=== PATIENT | male | born 1985 | race Caucasian/White ===

== ENCOUNTER 2024-08-04 10:21 | Emergency (ER) | payer MEDICAID, SELFPAY ==
[2024-08-04] VITALS (9 sets, daily range): BP systolic 106–136; BP diastolic 73–91; PULSE 70–95; RESP 18–22; TEMP 36.3–36.7; O2SAT 95–99; BMI 39.1
--- NOTE | 2024-08-04 10:41 | CT_ITS ---
FINAL REPORT TECHNIQUE: Oral and IV contrast enhanced exam This study was performed with techniques to keep radiation doses as low as reasonably achievable, (ALARA). Individualized dose reduction techniques using automated exposure control or adjustment of mA and/or kV according to the patient's size were employed. CLINICAL HISTORY: severe L sided flank pain and nausea, acute COMPARISON: None FINDINGS: Abdomen: No acute density is seen within the lung bases. The gallbladder is unremarkable. Solid abdominal organs are unremarkable. No bowel obstruction is present. There is no free air. No fluid collection is seen. There is a small nonobstructing left renal stone. There is no adenopathy. Pelvis: The appendix is normal. No bowel wall thickening is present. There is no free fluid. No pelvic mass is seen. There is a tiny left inguinal hernia containing fat. The bladder and prostate are normal in appearance. IMPRESSION: Small nonobstructing left renal stone without evidence of hydronephrosis or ureteral stone. Normal appendix. Reviewed, Interpreted and Dictated by Rita York MD Transcribed by Alie Grady Authenticated and [facility]
[2024-08-04 10:44] LABS: Microscopic, Urine URINE MICROSCOPIC (MICROSCOPIC)
[2024-08-04 10:47] LABS: Basophils # 0.1 K/mm3 (0-0.2); Basophils % 1.3 % (0.1-2.0); Eosinophils # 0.2 K/mm3 (0.0-0.4); Eosinophils % 2.1 % (0.1-12.0); Hematocrit 44.2 % (42.0-52.0); Hemoglobin 15.4 g/dL (14.1-18.0); Lymphocytes # 3.9 K/mm3 (0.7-4.5); Lymphocytes % 39.2 % (10-50); Mean Corpuscular HGB Conc 34.7 g/dL (31.8-35.4); Mean Corpuscular Hemoglobin 29.2 pg (27.0-31.2); Mean Corpuscular Volume 83.9 fl (80-94); Mean Platelet Volume 7.6 fl (7.4-10.4); Monocytes # 0.6 K/mm3 (0.1-1.0); Monocytes % 6.3 % (1.7-9.3); Neutrophils # 5.2 K/mm3 (1.8-7.8); Neutrophils % 51.1 % (37.0-80.0); Platelet Count 219 K/mm3 (142-424); Red Blood Count 5.27 M/mm3 (4.60-6.20); Red Cell Distribution Width 13.3 % (11.5-17.5); White Blood Count 10.1 K/mm3 (4.8-10.8)
[2024-08-04 11:00] LABS: Albumin Level 4.9 g/dl (3.5-5.0); Chloride 105 mmol/L (98-107)
[2024-08-04 11:01] LABS: Potassium 4.5 mmoL/L (3.5-5.1); Sodium 136 mmol/L (136-145)
[2024-08-04 11:03] LABS: Blood Urea Nitrogen 15 mg/dl (9-20); Creatinine Clearance Estimated 160 mL/min (50-200); Estimated Glomerular Filt Rate 93 ml/min (>60); GFR (African American) 113 ML/MIN (>60)
[2024-08-04 11:04] LABS: Alanine Aminotransferase 49 U/L (12-78); Albumin/Globulin Ratio 1.6 (1.1-1.8); Alkaline Phosphatase 59 U/L (38-126); Anion Gap 8.5 mEq/L (5-15); Aspartate Amino Transferase 41 U/L (17-59); Bilirubin,Total 0.4 mg/dl (0.2-1.3); Calcium 10.1 mg/dl (8.4-10.2); Carbon Dioxide 27 mmol/L (22.0-30.0); Globulin 3.1 g/dL (1.3-3.2); Glucose 106 mg/dl (74-100)
[2024-08-04] MEDS: KETOROLAC 30MG/ML VIAL 15 MG IV (11:05)
[2024-08-04] MEDS: ONDANSETRON 4MG/2ML VIAL 4 MG IV (11:05)
[2024-08-04] MEDS: MORPHINE 4MG/ML SYRINGE 4 MG IV ×2 (11:05→13:07)
[2024-08-04 11:11] LABS: Appearance,Urine CLEAR (Clear); Bilirubin,Urine Negative (Negative); Blood, Urine TRACE-I (Negative); Color,Urine YELLOW (Yellow); Glucose,Urine (UA) Negative (Negative); Ketones,Urine Negative (Negative); Leukocyte Esterase,Urine Negative (Negative); Nitrate,Urine Negative (Negative); Protein,Urine Negative (Negative); Urobilinogen,Urine 0.2 EU/dl (0.2)
--- NOTE | 2024-08-04 11:23 | ED_ITS ---
Discharge Plan Disposition Patient Disposition: Home, Self-Care Prescriptions Prescriptions: New methocarbamol 750 mg tablet 1,500 mg PO TID 5 Days Qty: 30 0RF Referrals Follow up/Referrals: Provider,Referral, MD [Primary Care Provider] - See instructions Activity Restrictions/Add. Instructions Additional Instructions/Restrictions: Call your family doctor to establish care for this visit to the emergency department and schedule follow-up within 48 hours to ensure improvement. If you have any worsening of your condition or any other concerning signs or symptoms, return to the emergency department or your primary care doctor for further evaluation. Clinical Impressions Clinical Impression: Renal colic, Muscle spasm Stand Alone Forms Stand Alone Forms: Work/School Release Print Language Print Language: Welsh Discharge ED Provider: Serg Morrow General Adult HPI General Chief complaint: PAIN Stated complaint: Pain Lower L side, nausea Time Seen by Provider: 08/04/24 10:22 Mode of Arrival: Family Vehicle Source of Information: Patient and Medical Record Limitations: No Limitations Description of Symptoms (Recalled from ER Triage Doc. by RN): Pt c/o L flank pain with nausea that began suddenly @ 0900. He reports he can not get comfortable and is pacing in the room. He has a hx of back pain from a injury at work and at this time a stone was seen in his left kidney on xray. History of Present Illness HPI narrative: Please note that above description of symptoms, in this electronic medical record under categorization of recalled from ER triage doctor by RN are reflective of an initial nursing assessment, however, is not reflective of my full history and physical exam that was personally taken and clarified. Consequentially, this preceding description of symptoms, which may include the patient's categorized chief complaint in the EMR, do not reflect my personal clinical impression, and the ultimate description of history of present illness and patient stated complaints should be deferred to this section of the note. Unless stated otherwise or congruent with this section of the note, additional signs, symptoms, or incongruence should be interpreted as inaccurate with my clinical impression. Related Data Previous Rx's ?Medication ?Instructions ?Recorded methocarbamol 750 mg tablet 1,500 mg (2 x 750 mg) PO TID 5 08/04/24 days #30 tabs Allergies Allergy/AdvReac Type Severity Reaction Status Date / Time Macrolide Antibiotics Allergy Verified 08/04/24 10:53 prednisone Allergy Verified 08/04/24 10:53 [facility] Disclaimer: The information contained in this section may have been updated after the patient was seen, as this information can be updated by other users. Social History Smoking Status: Current every day smoker alcohol intake: never current occupational status: employed Travel in the last 8 weeks: None ROS Obtained: Yes All systems reviewed & no additional complaints except as documented Physical Exam General General appearance: alert and in distress (mild d/t pain) Head Head exam: atraumatic and normocephalic Eye Eye exam: Present normal appearance, PERRL and EOMI Neck Neck exam: Present normal inspection, full ROM and trachea midline Respiratory Respiratory exam: Absent respiratory distress, wheezes, stridor, accessory muscle use or prolonged expiratory phase Cardiovascular Cardiovascular exam: Present other (Pulses equal symmetric in upper and lower extremities) Abdominal Exam Abdominal exam: Present soft; Absent distention, tenderness, guarding, rebound or pulsatile mass Extremities Exam Extremities exam: Absent edema Back Exam Back exam: Present CVA tenderness (L); Absent CVA tenderness (R) Neurological Exam Neurological exam: Present alert, oriented X3 and CN II-XII intact; Absent motor sensory deficit Skin Skin exam: Present warm and dry; Absent diaphoresis or erythema Medical Decision Making Medical Records Medical records reviewed: Yes I reviewed the patient's medical records. Screening: Per USPSTF and CDC recommendations, given the prevalence of disease in our region, it is our hospital?s policy to screen for HIV and viral Hepatitis for all patients aged 18 and over and those with ongoing risk factors. Kareem Inquiry Pt receiving controlled substance: No Kareem was queried for this patient: No Vital Signs: 08/04/24 10:23 08/04/24 11:10 08/04/24 11:30 Temperature 97.4 F L Temperature Source Oral Pulse Rate 79 79 Pulse Rate [Right] 95 H Respiratory Rate 22 Blood Pressure 114/73 133/91 H Blood Pressure [Right Arm] 136/86 Blood Pressure Mean Blood Pressure Mean [Right Arm] 102 Blood Pressure Source [Right Arm] Automatic Cuff 02 Sat by Pulse Oximetry 99 95 95 Oxygen Delivery Method Room Air Room Air 08/04/24 12:03 08/04/24 12:30 08/04/24 12:45 Temperature Temperature Source Pulse Rate 78 74 82 Pulse Rate [Right] Respiratory Rate Blood Pressure 122/84 120/84 124/83 Blood Pressure [Right Arm] Blood Pressure Mean Blood Pressure Mean [Right Arm] Blood Pressure Source [Right Arm] 02 Sat by Pulse Oximetry 97 96 97 Oxygen Delivery Method 08/04/24 13:30 08/04/24 14:00 08/04/24 14:32 Temperature 98.0 F Temperature Source Oral Pulse Rate 70 74 74 Pulse Rate [Right] Respiratory Rate 18 Blood Pressure 122/76 106/74 L 124/78 Blood Pressure [Right Arm] Blood Pressure Mean 86 Blood Pressure Mean [Right Arm] Blood Pressure Source [Right Arm] 02 Sat by Pulse Oximetry 95 95 Oxygen Delivery Method Room Air Lab Data Lab Results 08/04/24 10:35: WBC 10.1, RBC 5.27, Hgb 15.4, Hct 44.2, MCV 83.9, MCH 29.2, MCHC 34.7, RDW 13.3, Plt Count 219, MPV 7.6, Neut % (Auto) 51.1, Lymph % (Auto) 39.2, [place] % (Auto) 6.3, Eos % (Auto) 2.1, Baso % (Auto) 1.3, Neut # (Auto) 5.2, Lymph # (Auto) 3.9, [place] # (Auto) 0.6, Eos # (Auto) 0.2, Baso # (Auto) 0.1, Sodium 136, Potassium 4.5, Chloride 105, Carbon Dioxide 27, Anion Gap 8.5, BUN 15, Creatinine 0.90, Estimated Creat Clear 160, Estimated GFR 93, Est GFR ( Amer) 113, Glucose 106 H, Calcium 10.1, Total Bilirubin 0.4, AST 41, ALT 49, Alkaline Phosphatase 59, Total Protein 8.0, Albumin 4.9, Globulin 3.1, Albumin/Globulin Ratio 1.6, Lipase 69, Urine Color Yellow, Urine Appearance Clear, Urine pH 7.0, Ur Specific [place] 1.020, Urine Protein Negative, Urine Glucose (UA) Negative, Urine Ketones Negative, Urine Blood Trace-i, Urine Nitrate Negative, Urine Bilirubin Negative, Urine Urobilinogen 0.2, Ur Leukocyte Esterase Negative, Urine RBC None, Urine WBC Occasional, Ur Squamous Epith Cells Occasional, Urine Bacteria Trace 08/04/24 10:35 08/04/24 10:35 Orders (Tests/Meds): ED MEDICATIONS Discontinued Medications Generic Name Dose Route Start Last Admin Trade Name Freq PRN Reason Stop Dose Admin Iopamidol 75 ml 08/04/24 11:42 08/04/24 11:48 Iopamidol-370 (76%);100ml Bottle IV 08/04/24 11:43 75 ml ONCE ONE Administration Ketorolac Tromethamine 15 mg 08/04/24 10:41 08/04/24 11:05 Ketorolac 30mg/Ml Vial IV 08/04/24 10:42 15 mg ONCE ONE Administration Morphine Sulfate 4 mg 08/04/24 10:41 08/04/24 11:05 Morphine 4mg/Ml Syringe IV 08/04/24 10:42 4 mg ONCE ONE Administration Morphine Sulfate 4 mg 08/04/24 12:46 08/04/24 13:07 Morphine 4mg/Ml Syringe IV 08/04/24 12:47 4 mg ONCE ONE Administration Ondansetron HCl 4 mg 08/04/24 10:41 08/04/24 11:05 Ondansetron 4mg/2ml Vial IV 08/04/24 10:42 4 mg ONCE ONE Administration Sodium Chloride 10 ml 08/04/24 11:42 08/04/24 11:48 Sodium Chloride 0.9% 10ml Syr (Rad Only) IV 08/04/24 11:43 10 ml ONCE ONE Administration ORDERS Category Date Time Status CT abdomen pelvis w con Stat Cat Scan 08/04/24 10:41 Completed Complete Blood Count Auto Diff Stat Lab 08/04/24 10:35 Completed Comprehensive Metabolic Panel Stat Lab 08/04/24 10:35 Completed HIV (1&2) Antibody Rapid Stat Lab 08/04/24 10:35 Received Hep C Ab with Reflex to RNA Stat Lab 08/04/24 10:35 Received Lipase Stat Lab 08/04/24 10:35 Completed Urinalysis and Microscopic Stat Lab 08/04/24 10:35 Completed Medical Decision Narrative: 38-year-old male presenting with left-sided flank pain. Patient states that he was walking to work earlier today, had an acute onset left-sided flank pain. States that he had back pain a few months ago, was seen and received x-ray at that time. States that on the abdominal/lumbar spine x-ray they saw a kidney stone. Has never had stone pain in the past. Still urinating, no blood in his stool or urine, no fevers or chills, nausea or vomiting, or any other concerns. Has not taken anything for the pain. Does not radiate. History obtained with patient. On arrival, he appears to be in mild distress secondary to pain. Walking around the room, holding his left side. No outward signs of abnormality. Abdomen is soft, nontender, nondistended. Differential includes pyelonephritis, nephrolithiasis, diverticulitis, among others. Labs sent, imaging ordered. Patient was given Toradol, Zofran, morphine. Independent interpretation of workup demonstrates nonactionable hematologic labs. Urinalysis with trace blood. CT abdomen and pelvis was independently interpreted and periureteral fat stranding, but no obvious stone.. No evidence of peripancreatic fat stranding, perinephric fat stranding, bilateral maladies, etc. on reevaluation, patient feeling much better, states that the pain intermittently comes and goes. Given negative workup, I feel is most likely direct marketing representative of muscle spasm given recent back injury. Patient voiced his understanding and agreed. Could also be recently passed urinary stone, given no stone on CT, but periureteral inflammation and trace hematuria. Because patient at baseline without signs or symptoms of clinical decompensation, deemed appropriate for discharge. Results were relayed to patient who voiced understanding and were agreeable to outpatient management and follow up. I discussed my clinical impression with patient and answered all questions. At this time, the evidence for any other entities in the differential is insufficient to warrant any further testing or ED observation. This was explained as well. Advisory was given that persistent or worsening symptoms require further evaluation. I confirmed the understanding of this discussion. Private Branch Exchange Service Advisor disclaimer Much of this encounter note is an electronic turntable worker spoken language to printed text. Electronic turntable worker of the spoken language may permit errors. Although I have reviewed the note, some errors may still exist. Critical Care Critical Care Time Critical Care Time: No
[2024-08-04 11:48] LABS: Bacteria,Urine Trace /lpf; Squamous Epithelial Cell,Urine Occasional #/hpf (0-5); WBC,Urine Occasional #/hpf (0-3)
[2024-08-04] MEDS: IOPAMIDOL-370 (76%);100ML BOTTLE 75 ML IV (11:48)
[2024-08-04] MEDS: SODIUM CHLORIDE 0.9% 10ML SYR (RAD ONLY) 10 ML IV (11:48)
[2024-08-04 12:21] LABS: Lipase 69 U/L (23-300)
[2024-08-05 06:10] LABS: HCV Ab Non Reactive (Non Reactive)
[2024-08-05 11:33] LABS: HIV Combo NEGATIVE (Negative)
== END 2024-08-04 14:44 | disposition home or self-care (01) ==
PROVIDERS: Emergency Provider Emergency Medicine
DX: N23 Unspecified renal colic (principal); M62.838 Other muscle spasm; R11.0 Nausea
CPT/HCPCS: 74177; 80053; 81001; 83690; 85025; 86803; 87389; 96374; 96375; 99285; J1885; J2270; J2405; Q9967

== ENCOUNTER 2024-10-01 18:33 | Emergency (ER) | payer MEDICAID, SELFPAY ==
[2024-10-01 18:38] VITALS: BP 122/88; PULSE 77; RESP 18; TEMP 36.8; O2SAT 98
--- NOTE | 2024-10-01 18:49 | HMH.EDGENADL ---
Discharge Plan Disposition Patient Disposition: Home, Self-Care Condition: Good Prescriptions Prescriptions: New tamsulosin 0.4 mg capsule 0.4 mg PO HS Qty: 30 0RF Referrals Follow up/Referrals: Provider,Referral, MD [Primary Care Provider] - See instructions Activity Restrictions/Add. Instructions Additional Instructions/Restrictions: Please follow-up with urology for your hematuria. I have started on tamsulosin to help with ureteral spasm. Follow-up with your PCP within 48 hours for recheck sooner if you have any ongoing new or worsening signs or symptoms. Clinical Impressions Clinical Impression: Acute right flank pain Hematuria Qualifiers: Hematuria type: unspecified type Qualified Code(s): R31.9 - Hematuria, unspecified Print Language Print Language: Frisian Discharge ED Provider: Serg Morrow General Adult HPI <AMAYA Payne - Last Filed: 10/01/24 20:54> General Chief complaint: PAIN Stated complaint: Poss kidney stone,lower back pain Time Seen by Provider: 10/01/24 18:49 Mode of Arrival: Ambulatory Source of Information: Patient Limitations: No Limitations Description of Symptoms (Recalled from ER Triage Doc. by RN): Pt presents with c/o right sided flank pain x 1.5 hours prior to arrival. Pt states the pain comes and goes, and is sharp in nature. Pt has nausea, and urine appears darker. Pt rates pain as a 8/10 pain, pt states he has a history 2 other kidney stones. History of Present Illness HPI narrative: Patient presents for evaluation of right flank pain. Patient states it he began having right flank pain approximately 2 hours ago. He denies any trauma. He said it came on suddenly while working and has been progressive and constant since. He denies any numbness tingling loss of motor or sensory in his right lower extremity. It radiates down around to his right groin but denies dysuria hematuria chest pain shortness of breath fever chills hemoptysis hematochezia melena but does endorse nausea but no vomiting or diarrhea. Related Data Previous Rx's ?Medication ?Instructions ?Recorded tamsulosin 0.4 mg capsule 0.4 mg PO HS #30 caps 10/01/24 Allergies Allergy/AdvReac Type Severity Reaction Status Date / Time Macrolide Antibiotics Allergy Rash Verified 10/01/24 18:53 prednisone Allergy Shakiness Verified 10/01/24 18:53 PFSH <AMAYA Payne - Last Filed: 10/01/24 20:54> [facility] Disclaimer: The information contained in this section may have been updated after the patient was seen, as this information can be updated by other users. Social History Smoking Status: Current every day smoker alcohol intake: never current occupational status: employed Travel in the last 8 weeks: None Have you lived/traveled outside [place] in past 30 days?: No Contact w/someone who lives/traveled outside US past 30 days?: No Exposure to someone with infectious disease in past 14 days?: No Do you have a fever (greater than 100.4 F or 38 C)?: No Have you tested positive for COVID-19: No Exposed to someone with COVID-19 in past 14 days?: No Do you have a sore throat?: No Do you have a cough?: No Do you have any weakness?: No Do you have any diarrhea?: No Are you experiencing any unusual bleeding?: No Do you have any muscle aches/pain?: No Do you have any abdominal pain?: No Are you experiencing loss of taste or smell?: No <AMAYA Payne - Last Filed: 10/01/24 20:54> ROS Obtained: Yes Systems reviewed as appropriate & no additional complaints except as documented Physical Exam <AMAYA Payne - Last Filed: 10/01/24 20:54> General General appearance: alert and in no apparent distress Respiratory Respiratory exam: Present normal lung sounds bilaterally Cardiovascular Cardiovascular exam: Present regular rate Neurological Exam Neurological exam: Present alert and oriented X3 Medical Decision Making <AMAYA Payne - Last Filed: 10/01/24 20:54> Medical Records Medical records reviewed: Yes I reviewed the patient's medical records. Screening: Per USPSTF and CDC recommendations, given the prevalence of disease in our region, it is our hospital?s policy to screen for HIV and viral Hepatitis for all patients aged 18 and over and those with ongoing risk factors. Kareem Inquiry Pt receiving controlled substance: No Vital Signs: 10/01/24 18:38 10/01/24 18:51 10/01/24 19:02 Temperature 98.2 F Temperature Source Oral Pulse Rate 94 H 70 Pulse Rate [Right] 77 Respiratory Rate 18 Blood Pressure 140/90 169/111 H Blood Pressure [Right Arm] 122/88 Blood Pressure Mean Blood Pressure Mean [Right Arm] 99 Blood Pressure Source [Right Arm] Automatic Cuff Blood Pressure Position [Right Arm] Sitting 02 Sat by Pulse Oximetry 98 96 98 Oxygen Delivery Method Room Air Room Air 10/01/24 20:00 10/01/24 20:30 10/01/24 20:53 Temperature 98.4 F Temperature Source Oral Pulse Rate 74 70 91 H Pulse Rate [Right] Respiratory Rate 20 Blood Pressure 166/89 H 158/94 H 158/94 H Blood Pressure [Right Arm] Blood Pressure Mean 114 108 Blood Pressure Mean [Right Arm] Blood Pressure Source [Right Arm] Blood Pressure Position [Right Arm] 02 Sat by Pulse Oximetry 95 98 Oxygen Delivery Method Room Air Lab Data Lab results reviewed: Yes I reviewed the patient's lab results. Lab Results 10/01/24 18:46: Urine Color Yellow, Urine Appearance Clear, Urine pH 6.5, Ur Specific [place] 1.025, Urine Protein Negative, Urine Glucose (UA) Negative, Urine Ketones Negative, Urine Blood 2+ A, Urine Nitrate Negative, Urine Bilirubin Negative, Urine Urobilinogen 0.2, Ur Leukocyte Esterase Negative, Urine RBC 20-50, Urine WBC 3-5, Ur Squamous Epith Cells 3-5, Urine Bacteria 1+, Urine Mucus 1+, Urine Yeast Occasional 10/01/24 19:01: WBC 10.4, RBC 5.61, Hgb 15.4, Hct 46.8, MCV 83.4, MCH 27.5, MCHC 32.9, RDW 12.0, Plt Count 284, MPV 10.3, Neut % (Auto) 40.8, Lymph % (Auto) 48.6, [place] % (Auto) 7.8, Eos % (Auto) 1.8, Baso % (Auto) 0.7, Neut # (Auto) 4.3, Lymph # (Auto) 5.1 H, [place] # (Auto) 0.8, Eos # (Auto) 0.2, Baso # (Auto) 0.1, PT 9.9 L, INR 0.87 L, Sodium 140, Potassium 4.9, Chloride 102, Carbon Dioxide 27, Anion Gap 15.9 H, BUN 19, Creatinine 0.90, Estimated Creat Clear 15, Estimated GFR 93, Est GFR ( Amer) 113, Glucose 95, Calcium 10.4 H, Total Bilirubin 0.6, AST 79 H, ALT 140 H, Alkaline Phosphatase 51, Total Protein 8.6 H, Albumin 5.1 H, Globulin 3.5 H, Albumin/Globulin Ratio 1.5, Lipase 91, Procalcitonin 0.068 10/01/24 19:01 10/01/24 19:01 Orders (Tests/Meds): ED MEDICATIONS Discontinued Medications Generic Name Dose Route Start Last Admin Trade Name Freq PRN Reason Stop Dose Admin Acetaminophen 1,000 mg 10/01/24 19:02 10/01/24 19:14 Acetaminophen 1,000mg/100ml Vial IV 10/01/24 19:03 1,000 mg ONCE ONE Administration Iopamidol 75 ml 10/01/24 19:29 10/01/24 19:33 Iopamidol-370 (76%);100ml Bottle IV 10/01/24 19:30 75 ml ONCE ONE Administration Ketorolac Tromethamine 15 mg 10/01/24 19:02 10/01/24 19:14 Ketorolac 30mg/Ml Vial IV 10/01/24 19:03 15 mg ONCE ONE Administration Oxycodone HCl 5 mg 10/01/24 19:02 10/01/24 19:14 Oxycodone 5mg Immediate Release Tablet PO 10/01/24 19:03 5 mg ONCE ONE Administration Sodium Chloride 10 ml 10/01/24 19:29 10/01/24 19:33 Sodium Chloride 0.9% 10ml Syr (Rad Only) IV 10/01/24 19:30 10 ml ONCE ONE Administration ORDERS Category Date Time Status CT abdomen pelvis w con Stat Cat Scan 10/01/24 19:02 Completed POCUS Point of Care (ER Only) Stat Exams 10/01/24 19:46 Completed CBC w/Auto Diff [Complete Blood Count Auto Diff] Stat Lab 10/01/24 19:01 Completed CMP [Comprehensive Metabolic Panel] Stat Lab 10/01/24 19:01 Completed INR [Prothrombin Time INR] Stat Lab 10/01/24 19:01 Completed Lipase Stat Lab 10/01/24 19:01 Completed Procalcitonin Stat Lab 10/01/24 19:01 Completed Urinalysis and Microscopic Stat Lab 10/01/24 18:46 Completed Medical Decision Narrative: In summary patient is a 38-year-old male who presents to the emergency department for evaluation of right flank and abdominal pain. Patient is hemodynamically stable upon arrival, afebrile. Physical exam is remarkable for nonreproducible right flank pain that radiates around to the right abdomen with no midline spine tenderness no perimuscular tenderness full range of motion of his lower extremity no neurovascular abnormalities no focal neurologic deficits abdomen is soft nontender no rebound or guarding or rigidity. Bowel sounds normal active. He does have CVA tenderness to percussion on the right negative on the left. Differential diagnosis includes kidney stone versus urinary tract infection versus cholecystitis versus gastritis versus constipation etc. Initial workup will be conducted with hematologic labs CT scan abdomen pelvis urinalysis. Initial interventions include crystalloid bolus Toradol Tylenol and oxycodone. Initial workup reviewed by me shows that his hematologic labs are significant for elevated AST and ALT but negative alk phos and normal bilirubin with the remainder being nonactionable and urinalysis positive for 2+ blood negative nitrate negative and leukocyte Estrace negative microscopic exam shows 20-50 red cells 3-5 whites 1+ bacteria, my informal interpretation of his CT scan abdomen pelvis shows no evidence of hydronephrosis or stone and no other acute intra-abdominal pathology prior to radiology read. With a question this might be biliary in nature I ordered a POCUS and there was no evidence of stone or biliary ductal dilatation noted upon repeat evaluation patient had complete resolution of his symptoms. Given this mother remains diagnostic uncertainty as to the cause of his flank pain the possibility exists that he had already had a kidney stone and passed it was experiencing renal colic but I can find no radiographic evidence of stone currently. Patient advised to follow-up with his urologist if he has recurrence and to follow-up with his PCP for his hematuria if this is not stone related. I will start the patient on tamsulosin as he does have evidence of nonobstructing renal stones. <Serg Morrow MD - Last Filed: 10/01/24 22:11> Vital Signs: 10/01/24 18:38 10/01/24 18:51 10/01/24 19:02 Temperature 98.2 F Temperature Source Oral Pulse Rate 94 H 70 Pulse Rate [Right] 77 Respiratory Rate 18 Blood Pressure 140/90 169/111 H Blood Pressure [Right Arm] 122/88 Blood Pressure Mean Blood Pressure Mean [Right Arm] 99 Blood Pressure Source [Right Arm] Automatic Cuff Blood Pressure Position [Right Arm] Sitting 02 Sat by Pulse Oximetry 98 96 98 Oxygen Delivery Method Room Air Room Air 10/01/24 20:00 10/01/24 20:30 10/01/24 20:53 Temperature 98.4 F Temperature Source Oral Pulse Rate 74 70 91 H Pulse Rate [Right] Respiratory Rate 20 Blood Pressure 166/89 H 158/94 H 158/94 H Blood Pressure [Right Arm] Blood Pressure Mean 114 108 Blood Pressure Mean [Right Arm] Blood Pressure Source [Right Arm] Blood Pressure Position [Right Arm] 02 Sat by Pulse Oximetry 95 98 Oxygen Delivery Method Room Air Lab Data Lab Results 10/01/24 18:46: Urine Color Yellow, Urine Appearance Clear, Urine pH 6.5, Ur Specific [place] 1.025, Urine Protein Negative, Urine Glucose (UA) Negative, Urine Ketones Negative, Urine Blood 2+ A, Urine Nitrate Negative, Urine Bilirubin Negative, Urine Urobilinogen 0.2, Ur Leukocyte Esterase Negative, Urine RBC 20-50, Urine WBC 3-5, Ur Squamous Epith Cells 3-5, Urine Bacteria 1+, Urine Mucus 1+, Urine Yeast Occasional 10/01/24 19:01: WBC 10.4, RBC 5.61, Hgb 15.4, Hct 46.8, MCV 83.4, MCH 27.5, MCHC 32.9, RDW 12.0, Plt Count 284, MPV 10.3, Neut % (Auto) 40.8, Lymph % (Auto) 48.6, [place] % (Auto) 7.8, Eos % (Auto) 1.8, Baso % (Auto) 0.7, Neut # (Auto) 4.3, Lymph # (Auto) 5.1 H, [place] # (Auto) 0.8, Eos # (Auto) 0.2, Baso # (Auto) 0.1, PT 9.9 L, INR 0.87 L, Sodium 140, Potassium 4.9, Chloride 102, Carbon Dioxide 27, Anion Gap 15.9 H, BUN 19, Creatinine 0.90, Estimated Creat Clear 15, Estimated GFR 93, Est GFR ( Amer) 113, Glucose 95, Calcium 10.4 H, Total Bilirubin 0.6, AST 79 H, ALT 140 H, Alkaline Phosphatase 51, Total Protein 8.6 H, Albumin 5.1 H, Globulin 3.5 H, Albumin/Globulin Ratio 1.5, Lipase 91, Procalcitonin 0.068 Orders (Tests/Meds): ED MEDICATIONS Discontinued Medications Generic Name Dose Route Start Last Admin Trade Name Freq PRN Reason Stop Dose Admin Acetaminophen 1,000 mg 10/01/24 19:02 10/01/24 19:14 Acetaminophen 1,000mg/100ml Vial IV 10/01/24 19:03 1,000 mg ONCE ONE Administration Iopamidol 75 ml 10/01/24 19:29 10/01/24 19:33 Iopamidol-370 (76%);100ml Bottle IV 10/01/24 19:30 75 ml ONCE ONE Administration Ketorolac Tromethamine 15 mg 10/01/24 19:02 10/01/24 19:14 Ketorolac 30mg/Ml Vial IV 10/01/24 19:03 15 mg ONCE ONE Administration Oxycodone HCl 5 mg 10/01/24 19:02 10/01/24 19:14 Oxycodone 5mg Immediate Release Tablet PO 10/01/24 19:03 5 mg ONCE ONE Administration Sodium Chloride 10 ml 10/01/24 19:29 10/01/24 19:33 Sodium Chloride 0.9% 10ml Syr (Rad Only) IV 10/01/24 19:30 10 ml ONCE ONE Administration ORDERS Category Date Time Status CT abdomen pelvis w con Stat Cat Scan 10/01/24 19:02 Completed POCUS Point of Care (ER Only) Stat Exams 10/01/24 19:46 Completed CBC w/Auto Diff [Complete Blood Count Auto Diff] Stat Lab 10/01/24 19:01 Completed CMP [Comprehensive Metabolic Panel] Stat Lab 10/01/24 19:01 Completed INR [Prothrombin Time INR] Stat Lab 10/01/24 19:01 Completed Lipase Stat Lab 10/01/24 19:01 Completed Procalcitonin Stat Lab 10/01/24 19:01 Completed Urinalysis and Microscopic Stat Lab 10/01/24 18:46 Completed Medical Decision Narrative: In summary patient is a 38-year-old male who presents to the emergency department for evaluation of right flank and abdominal pain. Patient is hemodynamically stable upon arrival, afebrile. Physical exam is remarkable for nonreproducible right flank pain that radiates around to the right abdomen with no midline spine tenderness no perimuscular tenderness full range of motion of his lower extremity no neurovascular abnormalities no focal neurologic deficits abdomen is soft nontender no rebound or guarding or rigidity. Bowel sounds normal active. He does have CVA tenderness to percussion on the right negative on the left. Differential diagnosis includes kidney stone versus urinary tract infection versus cholecystitis versus gastritis versus constipation etc. Initial workup will be conducted with hematologic labs CT scan abdomen pelvis urinalysis. Initial interventions include crystalloid bolus Toradol Tylenol and oxycodone. Initial workup reviewed by me shows that his hematologic labs are significant for elevated AST and ALT but negative alk phos and normal bilirubin with the remainder being nonactionable and urinalysis positive for 2+ blood negative nitrate negative and leukocyte Estrace negative microscopic exam shows 20-50 red cells 3-5 whites 1+ bacteria, my informal interpretation of his CT scan abdomen pelvis shows no evidence of hydronephrosis or stone and no other acute intra-abdominal pathology prior to radiology read. With a question this might be biliary in nature I ordered a POCUS and there was no evidence of stone or biliary ductal dilatation noted upon repeat evaluation patient had complete resolution of his symptoms. Given this mother remains diagnostic uncertainty as to the cause of his flank pain the possibility exists that he had already had a kidney stone and passed it was experiencing renal colic but I can find no radiographic evidence of stone currently. Patient advised to follow-up with his urologist if he has recurrence and to follow-up with his PCP for his hematuria if this is not stone related. I will start the patient on tamsulosin as he does have evidence of nonobstructing renal stones. I independently evaluated and examined patient. Unsure was causing his pain, but in no acute distress when I am talking to him. I performed bedside ultrasound I independently interpreted it. Negative right upper quadrant findings. I feel this is likely consistent with past urinary tract stone. Patient has mildly enlarged ureter on the right, some fat stranding around the ureter as well as hematuria. I was consulted by the CES[facility], and we discussed the complexity of the problems being addressed. I approved the treatment and management plan for this patient's care in the Emergency Department, thus performing a substantive portion of the medical decision making. Because patient at baseline without signs or symptoms of clinical decompensation, deemed appropriate for discharge. Results were relayed to patient who voiced understanding and were agreeable to outpatient management and follow up. I discussed my clinical impression with patient and answered all questions. At this time, the evidence for any other entities in the differential is insufficient to warrant any further testing or ED observation. This was explained as well. Advisory was given that persistent or worsening symptoms require further evaluation. I confirmed the understanding of this discussion. Serg Morrow MD Critical Care <AMAYA Payne - Last Filed: 10/01/24 20:54> Critical Care Time Critical Care Time: No
[2024-10-01 18:51] VITALS: BP 140/90; PULSE 94; O2SAT 96
[2024-10-01 18:51] LABS: Microscopic, Urine URINE MICROSCOPIC (MICROSCOPIC)
[2024-10-01 18:55] LABS: Appearance,Urine CLEAR (Clear); Bilirubin,Urine Negative (Negative); Blood, Urine 2+ (Negative); Color,Urine YELLOW (Yellow); Glucose,Urine (UA) Negative (Negative); Ketones,Urine Negative (Negative); Leukocyte Esterase,Urine Negative (Negative); Nitrate,Urine Negative (Negative); PH,Urine 6.5 (5.0-8.5); Protein,Urine Negative (Negative); Specific Gravity, Urine 1.025 (1.005-1.030); Urobilinogen,Urine 0.2 EU/dl (0.2)
--- NOTE | 2024-10-01 18:57 | PC.NURSE ---
ROUNDED ON THE PT. THE PT VOICES THAT HE DOES NOT NEED ANYTHING AT THIS TIME. CALL LIGHT IS WITHIN REACH OF THE PT.
[2024-10-01 19:02] VITALS: BP 169/111; PULSE 70; O2SAT 98
--- NOTE | 2024-10-01 19:02 | CT_ITS ---
PROCEDURE INFORMATION: Exam: CT Abdomen And Pelvis With Contrast Exam date and time: 10/01/2024 7:31 PM Age: 38 years old Clinical indication: Abdominal pain; Flank; Right; Additional info: Right flank and abdominal pain TECHNIQUE: Imaging protocol: Computed tomography of the abdomen and pelvis with contrast. Radiation optimization: All CT scans at this facility use at least one of these dose optimization techniques: automated exposure control; mA and/or kV adjustment per patient size (includes targeted exams where dose is matched to clinical indication); or iterative reconstruction. Contrast material: ISOVUE; Contrast volume: 100 ml; Contrast route: IV; COMPARISON: CT ABDOMEN PELVIS W CON 08/04/2024 11:41 AM FINDINGS: Lungs: Lung bases are clear. Liver: Fatty liver changes with associated hepatomegaly measuring 20 cm. Liver otherwise unremarkable. Gallbladder and biliary ducts: Normal. No calcified stones. No ductal dilation. Pancreas: Normal. No ductal dilation. Spleen: Normal. No splenomegaly. Adrenal glands: Normal. No mass. Kidneys and ureters: 3 mm nonobstructing stone upper left kidney. Kidneys and ureters otherwise unremarkable with no obstructing stones or uropathy. Stomach and bowel: Unremarkable. No obstruction. No mucosal thickening. Appendix: Appendix is normal. No evidence of appendicitis. Intraperitoneal space: Unremarkable. No free air. No significant fluid collection. Vasculature: Unremarkable. No abdominal aortic aneurysm. Lymph nodes: Unremarkable. No enlarged lymph nodes. Urinary bladder: Unremarkable as visualized. Reproductive: Unremarkable as visualized. Bones/joints: Unremarkable. No acute fracture. Soft tissues: Unremarkable. IMPRESSION: No acute abnormalities of the abdomen and pelvis. Nonemergent findings as above.
[2024-10-01 19:09] LABS: Basophils # 0.1 K/mm3 (0-0.2); Basophils % 0.7 % (0.1-2.0); Eosinophils # 0.2 K/mm3 (0.0-0.4); Eosinophils % 1.8 % (0.1-12.0); Hematocrit 46.8 % (42.0-52.0); Hemoglobin 15.4 g/dL (14.1-18.0); Lymphocytes # 5.1 K/mm3 (0.7-4.5); Lymphocytes % 48.6 % (10-50); Mean Corpuscular HGB Conc 32.9 g/dL (31.8-35.4); Mean Corpuscular Hemoglobin 27.5 pg (27.0-31.2); Mean Corpuscular Volume 83.4 fl (80-94); Mean Platelet Volume 10.3 fl (7.4-10.4); Monocytes # 0.8 K/mm3 (0.1-1.0); Monocytes % 7.8 % (1.7-9.3); Neutrophils # 4.3 K/mm3 (1.8-7.8); Neutrophils % 40.8 % (37.0-80.0); Platelet Count 284 K/mm3 (142-424); Red Blood Count 5.61 M/mm3 (4.60-6.20); White Blood Count 10.4 K/mm3 (4.8-10.8)
[2024-10-01] MEDS: OXYCODONE 5MG IMMEDIATE RELEASE TABLET 5 MG PO (19:14)
[2024-10-01] MEDS: ACETAMINOPHEN 1,000MG/100ML VIAL 1000 MG IV (19:14)
[2024-10-01] MEDS: KETOROLAC 30MG/ML VIAL 15 MG IV (19:14)
[2024-10-01 19:18] LABS: Albumin Level 5.1 g/dl (3.5-5.0); Chloride 102 mmol/L (98-107); INR 0.87 (0.9-1.1); Potassium 4.9 mmoL/L (3.5-5.1); Prothrombin Time 9.9 seconds (10.1-12.5); Sodium 140 mmol/L (136-145)
[2024-10-01 19:21] LABS: Alanine Aminotransferase 140 U/L (12-78); Albumin/Globulin Ratio 1.5 (1.1-1.8); Alkaline Phosphatase 51 U/L (38-126); Anion Gap 15.9 mEq/L (5-15); Aspartate Amino Transferase 79 U/L (17-59); Bilirubin,Total 0.6 mg/dl (0.2-1.3); Blood Urea Nitrogen 19 mg/dl (9-20); Calcium 10.4 mg/dl (8.4-10.2); Carbon Dioxide 27 mmol/L (22.0-30.0); Creatinine Clearance Estimated 15 mL/min (50-200); Estimated Glomerular Filt Rate 93 ml/min (>60); GFR (African American) 113 ML/MIN (>60); Globulin 3.5 g/dL (1.3-3.2); Glucose 95 mg/dl (74-100); Lipase 91 U/L (23-300); Total Protein,Serum 8.6 g/dl (6.3-8.2)
--- NOTE | 2024-10-01 19:21 | PC.NURSE ---
Patient resting, states no needs at this time.
--- NOTE | 2024-10-01 19:25 | PC.NURSE ---
Patient resting, states no needs at this time
[2024-10-01] MEDS: IOPAMIDOL-370 (76%);100ML BOTTLE 75 ML IV (19:33)
[2024-10-01] MEDS: SODIUM CHLORIDE 0.9% 10ML SYR (RAD ONLY) 10 ML IV (19:33)
[2024-10-01 19:35] LABS: RBC,Urine 20-50 #/hpf (0-3)
[2024-10-01 19:36] LABS: Bacteria,Urine 1+ /lpf; Mucus,Urine 1+ /lpf; Yeast,Urine Occasional /lpf
[2024-10-01 20:00] VITALS: BP 166/89; PULSE 74; O2SAT 95
[2024-10-01 20:11] LABS: Procalcitonin 0.068 ng/mL (0.0-2.0)
--- NOTE | 2024-10-01 20:15 | PC.NURSE ---
Rounding done, patient resting comfortably
[2024-10-01 20:30] VITALS: BP 158/94; PULSE 70; O2SAT 98
[2024-10-01 20:53] VITALS: BP 158/94; PULSE 91; RESP 20; TEMP 36.9; O2SAT 94
== END 2024-10-01 20:59 | disposition home or self-care (01) ==
PROVIDERS: Physician Assistant; Emergency Provider Emergency Medicine
DX: R31.9 Hematuria, unspecified (principal); M54.50 Low back pain, unspecified; R11.0 Nausea; Z72.0 Tobacco use
CPT/HCPCS: 74177; 80053; 81001; 83690; 84145; 85025; 85610; 96374; 96375; 99285; J0131; J1885; Q9967

== ENCOUNTER 2024-10-15 17:12 | Emergency (ER) | payer MEDICAID, SELFPAY ==
[2024-10-15 17:14] VITALS: BP 152/101; PULSE 108; RESP 18; TEMP 36.6; O2SAT 96; BMI 37.8
--- NOTE | 2024-10-15 17:44 | PC.NURSE ---
rounded on the pt. The pt voices that he does not need anything at this time. call light is within reach of the pt.
[2024-10-15] MEDS: SULFA/TRIMETHOPRIM 1 TABLET 1 EACH PO (17:57)
--- NOTE | 2024-10-15 17:59 | ED_ITS ---
Discharge Plan Disposition Patient Disposition: Home, Self-Care Prescriptions Prescriptions: New sulfamethoxazole-trimethoprim [Bactrim] 400-80 mg tablet 1 tab PO BID 7 Days Qty: 14 0RF No Action tamsulosin 0.4 mg capsule 0.4 mg PO HS Qty: 30 0RF Referrals Follow up/Referrals: Provider,Referral, MD [Primary Care Provider] - See instructions Activity Restrictions/Add. Instructions Additional Instructions/Restrictions: At this time it was felt you are safe to be discharged home. If new or worsening symptoms please do not hesitate to return the emergency department. Please take antibiotics as prescribed and follow-up with your family doctor within 1 week to ensure it is resolving. Clinical Impressions Clinical Impression: Blepharitis Stand Alone Forms Stand Alone Forms: Work/School Release Print Language Print Language: Citizen Of [place] Discharge ED Provider: Nilson Edouard General Adult HPI General Chief complaint: Eye Problems Stated complaint: LT eye irritated Time Seen by Provider: 10/15/24 17:25 Mode of Arrival: Ambulatory Source of Information: Patient Limitations: No Limitations Description of Symptoms (Recalled from ER Triage Doc. by RN): Patient reports that he woke up with left eye irritation. States that he has had no injury that he is aware of. States it is red and swollen. History of Present Illness HPI narrative: Patient is a 38-year-old male with no pertinent past medical history presents emergency department for evaluation of left eyelid redness. Onset was acute over the last 24 hours, he does not have corrective vision. He has had conjunctivitis previously but feels this is different. No significant visual deficits, no retro-ocular pain. No other acute complaints at this time. Please note that above description of symptoms, in this electronic medical record under categorization of recalled from ER triage doctor by RN are reflective of an initial nursing assessment, however, is not reflective of my full history and physical exam that was personally taken and clarified. Consequentially, this preceding description of symptoms, which may include the patient's categorized chief complaint in the EMR, do not reflect my personal clinical impression, and the ultimate description of history of present illness and patient stated complaints should be deferred to this section of the note. Unless stated otherwise or congruent with this section of the note, additional signs, symptoms, or incongruence should be interpreted as inaccurate with my clinical impression. Related Data Previous Rx's ?Medication ?Instructions ?Recorded tamsulosin 0.4 mg capsule 0.4 mg PO HS #30 caps 10/01/24 sulfamethoxazole 400 1 tab PO BID blepharitis 7 days 10/15/24 mg-trimethoprim 80 mg tablet #14 tabs (Bactrim) Allergies Allergy/AdvReac Type Severity Reaction Status Date / Time Macrolide Antibiotics Allergy Rash Verified 10/01/24 18:53 prednisone Allergy Shakiness Verified 10/01/24 18:53 [facility] Disclaimer: The information contained in this section may have been updated after the patient was seen, as this information can be updated by other users. Social History Smoking Status: Current every day smoker alcohol intake: never current occupational status: employed Travel in the last 8 weeks: None Have you lived/traveled outside US in past 30 days?: No Contact w/someone who lives/traveled outside US past 30 days?: No Exposure to someone with infectious disease in past 14 days?: No Do you have a fever (greater than 100.4 F or 38 C)?: No Have you tested positive for COVID-19: No Exposed to someone with COVID-19 in past 14 days?: No Do you have a sore throat?: No Do you have a cough?: No Do you have any weakness?: No Do you have any diarrhea?: No Are you experiencing any unusual bleeding?: No Do you have any muscle aches/pain?: No Do you have any abdominal pain?: No Are you experiencing loss of taste or smell?: No ROS Obtained: Yes Systems reviewed as appropriate & no additional complaints except as documented Physical Exam General General appearance: alert and in no apparent distress Head Head exam: atraumatic, normocephalic and other Eye Eye exam: Present PERRL, EOMI and other (Eversion of the upper lid shows no hordeolum or chalazion. Erythematous swelling of the upper eyelid without significant fluctuance.); Absent conjunctival redness ENT ENT exam: Present mucous membranes moist Neck Neck exam: Present normal inspection Chest Chest inspection: Present normal inspection and symmetric chest wall rise Respiratory Respiratory exam: Absent respiratory distress Cardiovascular Cardiovascular exam: Present regular rate and normal rhythm Abdominal Exam Abdominal exam: Present soft Extremities Exam Extremities exam: Present normal inspection Neurological Exam Neurological exam: Present alert and CN II-XII intact Psychiatric Psychiatric exam: Present normal affect Skin Skin exam: Present warm and dry Medical Decision Making Medical Records Screening: Per USPSTF and CDC recommendations, given the prevalence of disease in our region, it is our hospital?s policy to screen for HIV and viral Hepatitis for all patients aged 18 and over and those with ongoing risk factors. Kareem Inquiry Pt receiving controlled substance: No Vital Signs: 10/15/24 17:14 Temperature 97.9 F Temperature Source Oral Pulse Rate [Radial] 108 H Respiratory Rate 18 Blood Pressure [Right Arm] 152/101 H Blood Pressure Mean [Right Arm] 118 Blood Pressure Source [Right Arm] Automatic Cuff Blood Pressure Position [Right Arm] Sitting 02 Sat by Pulse Oximetry 96 Oxygen Delivery Method Room Air Orders (Tests/Meds): ED MEDICATIONS Discontinued Medications Generic Name Dose Route Start Last Admin Trade Name Freq PRN Reason Stop Dose Admin Trimethoprim/Sulfamethoxazole 1 each 10/15/24 17:53 10/15/24 17:57 Sulfa/Trimethoprim 1 Tablet PO 10/15/24 17:54 1 each ONCE ONE Administration Medical Decision Narrative: In summary patient is a 2-year-old male with past medical history described above who presents emergency department for evaluation of superior eyelid erythema and swelling on the left. History and physical consistent with blepharitis. Patient is allergic to anything ending with -mycin. No concern for orbital cellulitis based on history and physical exam. Given this patient will be covered with Bactrim for which first dose will be given here and we discharged with a course of Bactrim was given return precautions. Critical Care Critical Care Time Critical Care Time: No
[2024-10-15 18:01] VITALS: BP 136/77; PULSE 115; RESP 16; TEMP 36.7; O2SAT 99
== END 2024-10-15 18:02 | disposition home or self-care (01) ==
PROVIDERS: Emergency Provider Emergency Medicine
DX: H01.009 Unspecified blepharitis unspecified eye, unspecified eyelid (principal)
CPT/HCPCS: 99283

== ENCOUNTER 2025-07-12 11:57 | Emergency (ER) | payer MEDICAID, SELFPAY ==
[2025-07-12] VITALS (8 sets, daily range): BP systolic 106–160; BP diastolic 52–79; PULSE 67–102; RESP 15–28; TEMP 36.7–36.9; O2SAT 91–98; BMI 39.1
--- NOTE | 2025-07-12 11:56 | ECG_ITS ---
APPROVED REPORT Exam: Resting ECG HR:92 bpm ECG Measurements Heart Rate 92 AXES MD 139 P 54 QRSd 98 QRS 85 QT 338 T 11 QTc 388 Conclusion SINUS RHYTHM NONSPECIFIC T-WAVE ABNORMALITY BORDERLINE ECG Electronically signed by : HAKAN GUILLORY, 07/16/2025 13:59:05
--- NOTE | 2025-07-12 12:01 | ED_ITS ---
<Statement entered by Nilson Edouard MD - 07/12/25 13:48> Nilson Edouard MD: I was consulted by the CESAR, and we discussed the complexity of the problems being addressed. I approved the treatment and management plan for this patient's care in the emergency department, thus performing a substantive portion of the medical decision making. Discharge Plan Disposition Patient Disposition: Left Against Medical Advice Condition: Undetermined Prescriptions Prescriptions: No Action tamsulosin 0.4 mg capsule 0.4 mg PO HS Qty: 30 0RF sulfamethoxazole-trimethoprim [Bactrim] 400-80 mg tablet 1 tab PO BID 7 Days Qty: 14 0RF Referrals Follow up/Referrals: Provider,Referral, [Primary Care Provider, Medical] - See instructions Clinical Impressions Clinical Impression: Unstable angina Print Language Print Language: Wol[place] Discharge ED Provider: Nilson Edouard General Adult HPI <Naomi Carbajal - Last Filed: 07/12/25 13:41> General Chief complaint: Chest Pain Stated complaint: CP Time Seen by Provider: 07/12/25 12:01 History of Present Illness HPI narrative: 39-year-old male presents emergency department with complaints of substernal chest pain that started approximately 730 this morning. He reports that he was at work when the symptoms started. He states that he was walking at a brisk pace. He reports that he has had similar episodes in the past however they have only lasted for a few minutes at a time and resolved spontaneously. He denies cardiac history. He states when he has the episodes he will have pain down his left arm as well. Related Data Previous Rx's ?Medication ?Instructions ?Recorded tamsulosin 0.4 mg capsule 0.4 mg PO HS #30 caps sulfamethoxazole 400 1 tab PO BID blepharitis 7 d ays 10/15/24 mg-trimethoprim 80 mg tablet #14 tabs (Bactrim) Allergies Allergy/AdvReac Type Severity Reaction Status Date / Time Macrolide Antibiotics Allergy Rash Verified 10/01/24 18:53 prednisone Allergy Shakiness Verified 10/01/24 18:53 PFSH <Naomi Carbajal - Last Filed: 07/12/25 13:41> PFS Disclaimer: The information contained in this section may have been updated after the patient was seen, as this information can be updated by other users. Social History Smoking Status: Current every day smoker alcohol intake: never current occupational status: employed Travel in the last 8 weeks?: None Have you lived/traveled outside US in past 30 days?: No Contact w/someone who lives/traveled outside US past 30 days?: No Exposure to someone with infectious disease in past 14 days?: No Do you have a fever (greater than 100.4 F or 38 C)?: No Have you tested positive for COVID-19?: No Exposed to someone with COVID-19 in past 14 days?: No Do you have a sore throat?: No Do you have a cough?: No Do you have any weakness?: No Do you have any diarrhea?: No Are you experiencing any unusual bleeding?: No Do you have any muscle aches/pain?: No Do you have any abdominal pain?: No Are you experiencing loss of taste or smell?: No <Naomi Raven - Last Filed: 07/12/25 13:41> ROS Obtained: Yes other Cardiovascular Cardiovascular: Reports chest pain and Reports radiating jaw, neck or arm pain Physical Exam <Naomi Raven - Last Filed: 07/12/25 13:41> Narrative Physical exam: General: Awake, aware, in no acute distress HEENT: Normocephalic, no evidence of trauma CV: RRR, no murmurs, rubs, or gallops Pulm: CTA bilaterally with no rhonchi, rales, wheezes ABD: Nontender, no swelling, guarding, or rebound tenderness Psych, appropriate mood and affect General General appearance: alert Respiratory Respiratory exam: Present normal lung sounds bilaterally Cardiovascular Cardiovascular exam: Present regular rate Neurological Exam Neurological exam: Present alert Medical Decision Making <Naomi Raven - Last Filed: 07/12/25 13:41> Medical Records Screening: Per USPSTF and CDC recommendations, given the prevalence of disease in our region, it is our hospital?s policy to screen for HIV and viral Hepatitis for all patients aged 18 and over and those with ongoing risk factors. Kareem Inquiry Pt receiving controlled substance: No Vital Signs: 07/12/25 12:00 07/12/25 12:02 07/12/25 12:24 Temperature 98.4 F Temperature Source Oral Pulse Rate 87 87 Pulse Rate [Left Radial] 74 Respiratory Rate 16 15 21 Blood Pressure 120/65 125/52 L Blood Pressure [Right Arm] 123/77 Blood Pressure Mean [Right Arm] 92 02 Sat by Pulse Oximetry 94 L 98 96 Oxygen Delivery Method Room Air Room Air Room Air 07/12/25 12:30 07/12/25 12:34 Temperature Temperature Source Pulse Rate 86 89 Pulse Rate [Left Radial] Respiratory Rate 21 28 H Blood Pressure 115/61 131/79 Blood Pressure [Right Arm] Blood Pressure Mean [Right Arm] 02 Sat by Pulse Oximetry 95 94 L Oxygen Delivery Method Room Air Room Air Lab Data Lab Results 07/12/25 12:00: WBC 7.7, RBC 5.00, Hgb 14.7, Hct 42.4, MCV 84.8, MCH 29.4, MCHC 34.7, RDW 11.9, Plt Count 233, MPV 10.2, Neut % (Auto) 47.6, Lymph % (Auto) 42.9, Clarke % (Auto) 6.4, Eos % (Auto) 2.1, Baso % (Auto) 0.6, Neut # (Auto) 3.7, Lymph # (Auto) 3.3, Clarke # (Auto) 0.5, Eos # (Auto) 0.2, Baso # (Auto) 0.1, Sodium 136, Potassium 4.0, Chloride 103, Carbon Dioxide 23, Anion Gap 14.0, BUN 13, Creatinine 0.80, Estimated Creat Clear 178, Estimated GFR 107, Est GFR ( Amer) 129, Glucose 151 H, Calcium 10.2, Total Bilirubin 0.5, AST 49, A LT 96 H, Alkaline Phosphatase 63, Troponin I < 0.01, NT-Pro-B Natriuret Pep 51.5, Total Protein 7.5, Albumin 4.7, Globulin 2.8, Albumin/Globulin Ratio 1.7 07/12/25 12:00 07/12/25 12:00 Orders (Tests/Meds): ED MEDICATIONS Discontinued Medications Generic Name Dose Route Start Last Admin Trade Name Freq PRN Reason Stop Dose Admin Aspirin 324 mg 07/12/25 12:12 07/12/25 12:16 Aspirin 81mg Chewable Tablet PO 07/12/25 12:13 324 mg ONCE ONE Administration Nitroglycerin 0.4 mg 07/12/25 12:31 07/12/25 12:51 Nitroglycerin 0.4mg Sl Tablet SL 07/12/25 12:32 Not Given ONCE ONE ORDERS Category Date Time Status XR chest portable Stat Exams 07/12/25 12:13 Completed Complete Blood Count Auto Diff Stat Lab 07/12/25 12:00 Completed Comprehensive Metabolic Panel Stat Lab 07/12/25 12:00 Completed Magnesium Stat Lab 07/12/25 12:00 Received NT Pro Brain Natriuretic Pep. Stat Lab 07/12/25 12:00 Completed Troponin I Q3H Lab 07/12/25 15:15 Ordered Troponin I Q3H Lab 07/12/25 18:15 Ordered Troponin I Stat Lab 07/12/25 12:00 Completed Medical Decision Narrative: Initial impression of presenting illness: 39-year-old male with a history of bipolar disease presents to the emergency department with complaints of substernal chest pain that started approximately 730 this morning. He reports the pain does radiate down his left arm. He states that he was walking at a brisk pace this morning while at work when the symptoms started. He reports that he has had similar episodes in the past however they have only lasted for couple minutes and resolved spontaneously. Patient denies alcohol use. He states that he does vape heavily and use recreational marijuana. Differential diagnosis includes but is not limited to: ACS, aortic dissection, pneumonia, PE, musculoskeletal strain, pleurisy, anxiety Patient arrives hemodynamically stable, afebrile, without respiratory distress with vital signs interpreted by myself. Initial physical exam unremarkable. Patient is PERC negative Initial diagnostic plan: ACS workup including aspirin and nitro Results from initial plan were reviewed and interpreted by myself, pertinent positives include: Laboratory studies including initial troponin were nonactionable. EKG showed a sinus rhythm with no ischemic changes. X-ray was also unremarkable for acute findings. Interventions in the ED: Patient was given 324 mg of aspirin per ACS protocol. I had also ordered nitro for patient however he declined. Patient was made aware of the results and the findings, upon reevaluation patient has remained stable throughout stay, symptoms remained stable. Upon reevaluation patient still complaining of chest pain with left arm pain. Vital signs remained stable. Consultation/discussion with other physicians: Spoke with front desk supervisor Dr. Carballo regarding patient's presenting complaint and workup findings. He was agreeable to consult outpatient for unstable angina. I have discussed the recommendations for admission with patient however he is unsure that he would like to be admitted at this time. he asked for some time to speak with his partner regarding staying for further workup or not. I went back to patient's room after he had time to discuss admission with his partner. He states that he does not want to be admitted at this time. He states that he would like to speak with his primary care provider first before making any decisions about any further cardiac workup. I explained to patient that is possible that we are missing a diagnosis and that I feel patient is at risk for severe cardiac diagnoses such as an AL. Advised patient that it is possible that he could have worsening symptoms including catastrophic events such as . Patient states he understands this and just does not feel comfortable staying at this time. He states that he will talk to his primary care and get a cardiology referral if they feel that that is necessary. Patient request to leave AMA and assumes the risk of doing so at this time. <Nilson Edouard MD - Last Filed: 07/12/25 12:03> Vital Signs: 07/12/25 12:00 07/12/25 12:02 07/12/25 12:24 Temperature 98.4 F Temperature Source Oral Pulse Rate 87 87 Pulse Rate [Left Radial] 74 Respiratory Rate 16 15 21 Blood Pressure 120/65 125/52 L Blood Pressure [Right Arm] 123/77 Blood Pressure Mean [Right Arm] 92 02 Sat by Pulse Oximetry 94 L 98 96 Oxygen Delivery Method Room Air Room Air Room Air 07/12/25 12:30 07/12/25 12:34 Temperature Temperature Source Pulse Rate 86 89 Pulse Rate [Left Radial] Respiratory Rate 21 28 H Blood Pressure 115/61 131/79 Blood Pressure [Right Arm] Blood Pressure Mean [Right Arm] 02 Sat by Pulse Oximetry 95 94 L Oxygen Delivery Method Room Air Room Air Lab Data Lab Results 07/12/25 12:00: WBC 7.7, RBC 5.00, Hgb 14.7, Hct 42.4, MCV 84.8, MCH 29.4, MCHC 34.7, RDW 11.9, Plt Count 233, MPV 10.2, Neut % (Auto) 47.6, Lymph % (Auto) 42.9, Clarke % (Auto) 6.4, Eos % (Auto) 2.1, Baso % (Auto) 0.6, Neut # (Auto) 3.7, Lymph # (Auto) 3.3, Clarke # (Auto) 0.5, Eos # (Auto) 0.2, Baso # (Auto) 0.1, Sodium 136, Potassium 4.0, Chloride 103, Carbon Dioxide 23, Anion Gap 14.0, BUN 13, Creatinine 0.80, Estimated Creat Clear 178, Estimated GFR 107, Est GFR ( Amer) 129, Glucose 151 H, Calcium 10.2, Total Bilirubin 0.5, AST 49, A LT 96 H, Alkaline Phosphatase 63, Troponin I < 0.01, NT-Pro-B Natriuret Pep 51.5, Total Protein 7.5, Albumin 4.7, Globulin 2.8, Albumin/Globulin Ratio 1.7 Orders (Tests/Meds): ED MEDICATIONS Discontinued Medications Generic Name Dose Route Start Last Admin Trade Name Freq PRN Reason Stop Dose Admin Aspirin 324 mg 07/12/25 12:12 07/12/25 12:16 Aspirin 81mg Chewable Tablet PO 07/12/25 12:13 324 mg ONCE ONE Administration Nitroglycerin 0.4 mg 07/12/25 12:31 07/12/25 12:51 Nitroglycerin 0.4mg Sl Tablet SL 07/12/25 12:32 Not Given ONCE ONE ORDERS Category Date Time Status XR chest portable Stat Exams 07/12/25 12:13 Completed Complete Blood Count Auto Diff Stat Lab 07/12/25 12:00 Completed Comprehensive Metabolic Panel Stat Lab 07/12/25 12:00 Completed Magnesium Stat Lab 07/12/25 12:00 Received NT Pro Brain Natriuretic Pep. Stat Lab 07/12/25 12:00 Completed Troponin I Q3H Lab 07/12/25 15:15 Ordered Troponin I Q3H Lab 07/12/25 18:15 Ordered Troponin I Stat Lab 07/12/25 12:00 Completed ECG Data Tracing #1: Independently interpreted by me rate is 92, rhythm is regular, axis is normal, no ST elevation in anatomical contiguous leads, QTc 388. Critical Care <Naomi Lucioevy - Last Filed: 07/12/25 13:41> Critical Care Time Critical Care Time: No
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
--- OUTSIDE RECORDS SUMMARY | 2025-07-12 12:03 | XMS_ITS | Clinical Summary ---
Author Organization [facility] Address [address] [place] [id number] Care Team Providers [employer] Name Role Phone System, Provider Not In Primary Care Provider Un available Allergies Active Allergy Reactions Criticality Noted Date Comments Clindamycin Rash Low 01/25/2018 Erythromycin Rash Low 01/25/2018 Prednisone Anaphylaxis High 01/25/2018 Pt thinks but cannot really answer this questions just keeps stating 'I woke up in a hospital' Tetracycline Rash Low 01/25/2018 Medications omeprazole (PRILOSEC) 20 MG capsule Take 1 capsule by mouth daily for 30 days 30 capsule 8 Active divalproex (DEPAKOTE) 500 MG 24 hr tablet Take 1 tablet by mouth Twice a Day. 60 tablet 9 Active divalproex (DEPAKOTE) 500 MG 24 hr tablet Take 1 tablet by mouth daily. 10 tablet 9 Active ondansetron (ZOFRAN) 4 MG tablet Take 1 tablet by mouth every 8 (eight) hours as needed for Nausea. 20 tablet 9 Active Multiple Vitamin (MULTI-VITAMINS) TABS Take 1 tablet by mouth. Active ondansetron (ZOFRAN-ODT) 4 MG disintegrating tablet Take 4 mg by mouth. 7 Active gabapentin (NEURONTIN) 400 MG capsule Take 400 mg by mouth 3 (three) times daily. Active DOXAZOSIN MESYLATE PO Take by mouth. Active Social History Tobacco Use Types Packs/Day Years Used Date Smoking Tobacco: Never Smokeless Tobacco: Never Alcohol Use Standard Drinks/Week Comments No 0 (1 standard drink = 0.6 oz pur e alcohol) Sex and Gender Information Value Date Recorded Sex Assigned at Not on file Legal Sex Male 12:41 PM EDT Gender Identity Not on file Sexual Orientation Not on file Last Filed Vital Signs Vital Sign Reading Time Taken Comments Blood Pressure 144/68 08/16/2020 1:28 PM EST Pulse 88 08/16/2020 1:28 PM EST Temperature 36.6 C (97.9 F) 08/16/2020 11:15 AM EST Respiratory Rate 18 08/16/2020 1:28 PM EST Oxygen Saturation 98% 08/16/2020 1:28 PM EST Inhaled Oxygen Concentration - - Weight 81.6 kg (180 lb) 08/16/2020 11:15 AM EST Height 162.6 cm (5' 4 ) 08/16/2020 11:15 AM EST Body Mass Index 30.9 08/16/2020 11:15 AM EST Plan of Treatment Health Maintenance Due Date Last Done Comments Hepatitis B (HepB) Vaccine ( 1 of 3 - 19+ 3-dose series) 10/24/2002 Tdap/Td Vaccine >11 yo (1 - Tdap) 10/24/2002 HPV Vaccine (1 - 3-dose SCDM series) 10/24/2010 Colon Cancer Risk Assessment 2023 Annual SDOH Screening 08/20/2024 Influenza Vaccine (#1) 2025 Haemophilus Influenzae Type B (Hib) Vaccine Aged Out No longer eligible b ased on patient's age to complete this topic Hepatitis A (HepA) Vaccine Aged Out N o longer eligible based on patient's age to complete this topic Meningococcal ACWY Aged Out No longer eligible based on patient's age to complete this topic Pneumococcal Vaccines 6-49 yo Risk Aged Out No longer eligible based on patient's age to complete this topic Polio (IPV) Aged Out No longer eligi ble based on patient's age to complete this topic Rotavirus (RV) Vaccine Aged Out No lo nger eligible based on patient's age to complete this topic Insurance [address] Care Teams [employer] Relationship Specialty Start Date End Date System, Provider Not In PCP - General 02/11/19
--- NOTE | 2025-07-12 12:13 | XR_ITS ---
PROCEDURE INFORMATION: Exam: XR Chest Exam date and time: 07/12/2025 12:23 PM Age: 39 years old Clinical indication: Chest wall pain; Additional info: Cp, smoker TECHNIQUE: Imaging protocol: Radiologic exam of the chest. Views: 1 view. Total images: 1 COMPARISON: CT ABDOMEN PELVIS W CON 10/01/2024 7:31 PM FINDINGS: Lungs: No consolidation. Pleural spaces: No pleural effusion. No pneumothorax. Heart/Mediastinum: No cardiomegaly. Bones/joints: Unremarkable. IMPRESSION: No acute findings.
[2025-07-12] MEDS: ASPIRIN 81MG CHEWABLE TABLET 324 MG PO (12:16)
[2025-07-12 12:23] LABS: Hematocrit 42.4 % (42.0-52.0); Hemoglobin 14.7 g/dL (14.1-18.0); Immature Granulocytes % 0.4 %; Mean Corpuscular HGB Conc 34.7 g/dL (31.8-35.4); Mean Corpuscular Hemoglobin 29.4 pg (27.0-31.2); Mean Corpuscular Volume 84.8 fl (80-94); Nucleated Red Blood Cells % 0 %; Platelet Count 233 K/mm3 (142-424); Red Blood Count 5.00 M/mm3 (4.60-6.20); Red Cell Distribution Width-SD 35.8 fL; White Blood Count 7.7 K/mm3 (4.8-10.8)
[2025-07-12 12:37] LABS: Alanine Aminotransferase 96 U/L (12-78); Albumin Level 4.7 g/dl (3.5-5.0); Albumin/Globulin Ratio 1.7 (1.1-1.8); Alkaline Phosphatase 63 U/L (38-126); Anion Gap 14.0 mEq/L (5-15); Aspartate Amino Transferase 49 U/L (17-59); Bilirubin,Total 0.5 mg/dl (0.2-1.3); Blood Urea Nitrogen 13 mg/dl (9-20); Calcium 10.2 mg/dl (8.4-10.2); Carbon Dioxide 23 mmol/L (22.0-30.0); Chloride 103 mmol/L (98-107); Creatinine Clearance Estimated 178 mL/min (50-200); Creatinine,Serum 0.80 mg/dl (0.66-1.25); Estimated Glomerular Filt Rate 107 ml/min (>60); GFR (African American) 129 ML/MIN (>60); Globulin 2.8 g/dL (1.3-3.2); Glucose 151 mg/dl (74-100); Potassium 4.0 mmoL/L (3.5-5.1); Sodium 136 mmol/L (136-145); Total Protein,Serum 7.5 g/dl (6.3-8.2)
[2025-07-12 12:47] LABS: NT Pro Brain Natriuretic Pep. 51.5 pg/mL (0-125)
[2025-07-12 13:09] LABS: Troponin I < 0.01 ng/ml (0.00-0.034)
[2025-07-12 13:50] LABS: Magnesium 2.1 mg/dl (1.6-2.3)
== END 2025-07-12 13:53 | disposition left against medical advice (07) ==
PROVIDERS: Nurse Practitioner Family; Emergency Provider Emergency Medicine
DX: R07.9 Chest pain, unspecified (principal); I20.0 Unstable angina; F17.210 Nicotine dependence, cigarettes, uncomplicated
CPT/HCPCS: 71045; 80053; 83735; 83880; 84484; 85025; 93005; 99285